=== PATIENT | male | born 1985 | race Caucasian/White ===

== ENCOUNTER 2021-12-02 07:42 | Emergency (ER) | payer OTHER, SELFPAY ==
[2021-12-02 09:03] VITALS: BP 156/83; PULSE 70; RESP 18; TEMP 36.2; O2SAT 100; BMI 28.7
--- NOTE | 2021-12-02 09:12 | ED_ITS ---
HPI - Back Pain/Injury General Chief Complaint: Back Pain/Injury Stated Complaint: back pain Time Seen by Provider: 12/02/21 09:12 Source: patient Mode of arrival: ambulatory Limitations: no limitations History of Present Illness HPI Narrative: 36 yo male with history of sciatica presents to the ER for evaluation of right lower back pain that radiates down the back of his leg that started yesterday morning when he woke up. It started when he bent down while sitting to put his sock on. Report a sensation of electrical shocks starting in his right lower back and shooting all the way down the back of his leg. He reports he has had severe pain in his right lower back since then. Is making it difficult for him to walk. He reports a history of sciatica, he has had a MRI in the past. He has not had a flare-up in the last 6 months. He does do strenuous work and cuts down trees. He cannot recall a significant injury or any trauma. No falls. He was seen in urgent care yesterday and told to come to the ER but he left without being seen last night. He took Tylenol with no improvement. He denies any urinary incontinence or bowel incontinence. No saddle paresthesias. MD elicited complaint: back pain Pertinent past history: prior back pain Onset (ago): day(s) (1) Timing: constant Severity: severe Similar Symptoms Previously: Yes Quality: sharp Location: right lower back Radiation: buttocks and right upper leg Exacerbating factors: movement and walking Relieving factors: immobilization and sitting upright Context: bending Associated symptoms: difficulty walking Treatments prior to arrival: acetaminophen Work related injury: No Related Data Previous Rx's Medication Instructions Recorded cyclobenzaprine 10 mg tablet 10 mg PO TID PRN muscle spasm #10 12/02/21 tabs lidocaine 5 % topical patch 1 patch topical DAILY #15 ea 12/02/21 oxycodone 5 mg tablet 5 mg PO Q6H PRN severe pain (scale 12/02/21 score 7-10) #10 tabs prednisone 50 mg tablet 50 mg PO DAILY 5 days #5 tabs 12/02/21 Allergies Allergy/AdvReac Type Severity Reaction Status Date / Time No Known Allergies Allergy Unverified 12/25/19 16:22 Review of Systems Review of Systems: Constitutional: No Fever, No Chills Cardiovascular: No Chest Pain, No SOB Respiratory: No Cough, No Sputum Gastrointestinal: No Nausea, No Vomiting, No Diarrhea, No abdominal Pain Musculoskeletal: + joint pain, + Myalgias : No urinary incontinence Skin: No Skin Lesions, No rash Neuro: No Weakness, No Numbness, No Dizziness, No Headache Psych: + Anxiety/Panic, No Depression Heme/Lymph: No Bruising, No Lymphadenopathy PMFSH Social History Social History Advance Directives: No Advance Directives Information Provided: No Physical Exam Vital Signs: Vital Signs: Last Vital Signs Temp 97.1 F 12/02/21 09:03 Pulse 63 12/02/21 11:01 Resp 16 12/02/21 11:01 BP 111/73 12/02/21 11:01 Pulse Ox 98 12/02/21 11:01 O2 Del Method 12/02/21 11:01 BMI result Body Mass Index 28.7 Appearance: Alert. Oriented X3. No acute distress. HEENT: normal inspection CVS: Normal heart rate and rhythm. Pulses normal. Respiratory: No respiratory distress. Skin: Skin warm and dry. Normal skin color. Normal skin turgor. No rashes. Back: right lower lumbar soft tissue tenderness, right +SI tenderness. +straight leg raise test Extremities: normal inspection x4 Neuro: Oriented X 3. No motor deficit. No sensory deficit. Slow but steady gait, antalgic gait Course Course Course Narrative: 36-year-old male presents to the ER for evaluation of severe right lower back pain that radiates down his right leg. Worse with walking and movement. He has history of sciatica and this feels similar. He has no focal deficits on e xamination. Positive straight leg test. He has a limping gait. He has no red flag symptoms of low back pain. No role for emergent imaging today. Will treat for sciatica and reassess. Reevaluation(s) Reevaluation #1: Pain improved but still limping when he walks. Will give a dose of prednisone and repeat oxycodone. Will reassess. Reevaluation #2: Gait is now normal. His pain is much improved. Will discharge with pain control, muscle relaxer, steroids and have him follow-up with primary care doctor. He was given information for this. We discussed return precautions as well. Stable for discharge home. Work note provided. Critical Care Time Critical Care Time Critical Care Time: No Discharge Plan Discharge Clinical Impression: Sciatica Patient Disposition: Home, Self-Care Instructions: Sciatica (ED), Lower Back Exercises (ED) Additional Instructions: No bending, lifting or twisting. Use ice several times per day for 20 minutes at a time for the next 48 hours and then change to heat. Take medications as prescribed to help with pain and discomfort. Follow up with your Primary Care Doctor this week. If your pain worsens, if you develop new numbness, tingling, weakness, loss of function or incontinence call 911 or come back to the ER right away for evaluation. Prescriptions: New cyclobenzaprine 10 mg tablet 10 mg PO TID PRN (Reason: muscle spasm) Qty: 10 0RF lidocaine 5 % adhesive patch,medicated 1 patch topical DAILY Qty: 15 0RF Rx Instructions: leave on most painful area for up to 12 hrs oxycodone 5 mg tablet 5 mg PO Q6H PRN (Reason: severe pain (scale score 7-10)) Qty: 10 0RF Rx Instructions: Partial Fill upon patient request. prednisone 50 mg tablet 50 mg PO DAILY 5 Days Qty: 5 0RF Stand Alone Forms: Work/School Release
[2021-12-02] MEDS: Acetaminophen 325 MG TABLET 975 MG PO (09:33)
[2021-12-02] MEDS: oxyCODONE HCl Immed Release 5 MG TABLET PO ×2 (09:33→10:59)
[2021-12-02] MEDS: Ketorolac Tromethamine 30 MG/ML VIAL IM (09:33)
[2021-12-02] MEDS: predniSONE 10 MG TABLET 50 MG PO (10:59)
[2021-12-02 11:01] VITALS: BP 111/73; PULSE 63; RESP 16; O2SAT 98
== END 2021-12-02 12:18 | disposition home or self-care (01) ==
PROVIDERS: Emergency Provider Emergency Medicine
DX: M54.41 Lumbago with sciatica, right side (principal); Z79.899 Other long term (current) drug therapy
CPT/HCPCS: 96372; 99283; 99284; J1885

== ENCOUNTER 2023-01-09 15:08 | Outpatient (REF) | payer SELFPAY ==
[2023-01-09 15:27] LABS: MANUAL DIFF FLAG NO
[2023-01-09 15:42] LABS: Basophils Absolute Auto 0.1 X10*3/uL (0.0-0.2); Basophils Percent Auto 1.3 % (0-2); Eosinophils Absolute Auto 0.7 X10*3/uL (0.0-0.4); Eosinophils Percent Auto 8.9 % (0-4); Hematocrit 44.6 % (42.0-52.0); Hemoglobin 14.7 g/dl (14.0-18.0); Imm Gran Abs Auto 0.02 X10*3/uL (0.00-0.03); Imm Gran Pct Auto 0.3 % (0.0-0.4); Lymphocytes Absolute Auto 2.3 X10*3/uL (1.2-4.9); Lymphocytes Percent Auto 29.2 % (20-40); Mean Corpuscular Hemoglobin 28.7 pg (27.0-33.0); Mean Corpuscular Volume 86.9 fL (80.0-98.0); Mean Platelet Volume 9.3 fL (9.4-12.4); Monocytes Percent Auto 11.9 % (2-11); Neutrophils Absolute Auto 3.9 x10*3/uL (2.0-8.3); Neutrophils Percent Auto 48.4 % (45-73); Platelet Count 268 X10*3/uL (160-400); Red Blood Count 5.13 X10*6/uL (4.60-5.80); Red Cell Distribution Width 12.5 % (11.0-16.0)
[2023-01-09 16:14] LABS: Alanine Aminotransferase 17 U/L (0-40); Albumin Level 4.6 g/dL (3.5-5.0); Alkaline Phosphatase 65 U/L (39-117); Anion Gap 13 (12-20); Aspartate Amino Transferase 21 U/L (5-37); Bilirubin Total 0.4 mg/dL (0.0-1.0); Blood Urea Nitrogen 10 mg/dL (9-16); Carbon Dioxide 29 mmol/L (22-29); Chloride 101 mmol/L (96-108); Cholesterol 176 mg/dL (<200); Estimated Glomerular Filt Rate > 60; Glucose Random 88 mg/dL (60-115); HDL Cholesterol 50 mg/dL (>40); LDL Cholesterol Calculated 116 mg/dL (<100); Potassium 4.1 mmol/L (3.3-5.1); Sodium 139 mmol/L (135-145); Triglycerides 53 mg/dL (<150)
== END 2023-01-09 15:09 | disposition home or self-care (01) ==
LOC: HO.LAB 15:08
PROVIDERS: Visit Provider Internal Medicine
DX: H81.319 Aural vertigo, unspecified ear (principal); H91.90 Unspecified hearing loss, unspecified ear; H92.01 Otalgia, right ear; I10 Essential (primary) hypertension; R59.0 Localized enlarged lymph nodes
CPT/HCPCS: 36415; 80053; 80061; 85025